=== PATIENT | male | born 2000 | race African-American/Black ===

== ENCOUNTER 2021-10-04 16:36 | Emergency (ER) | payer SELFPAY ==
[~2021-10-04] VITALS: Ht 170.2 cm; Wt 75.0 kg
[2021-10-04 16:38] VITALS: BP 150/90
[2021-10-04] MEDS ORDERED: KETOROLAC 30MG/ML VIAL IV STA (17:22)
[2021-10-04] MEDS ORDERED: SODIUM CHLORIDE 0.9% 1,000 ML IV ONE (17:30)
== END 2021-10-04 17:52 | disposition left against medical advice (07) ==
LOC: ER 16:36
DX: R10.84 Generalized abdominal pain (principal); R11.2 Nausea with vomiting, unspecified; F11.10 Opioid abuse, uncomplicated
CPT/HCPCS: 93005; 99283; J7030; J1885